=== PATIENT | female | born 1985 | race Hispanic/Latino ===

== ENCOUNTER 2021-05-04 18:11 | Emergency (ER) | payer SELFPAY ==
[~2021-05-04] VITALS: Ht 157.5 cm; Wt 72.6 kg
[2021-05-04] MEDS ORDERED: ACETAMINOPHEN 325 MG TAB PO ONE (18:45)
[2021-05-04] MEDS ORDERED: ACETAMINOPHEN 325 MG TAB ONE (18:47)
[2021-05-04] MEDS ORDERED: CASIRIVIMAB/IMDEVIMAB 10 ML in SODIUM CHLORIDE 0.9% 100 ML IV ONE (19:30)
[2021-05-04 19:38] LABS: CLARITY,URINE CLEAR (CLEAR); COLOR,URINE STRAW (YELLOW); KETONES,URINE NEGATIVE (NEGATIVE); LEUKOCYTE ESTERASE ,URINE NEGATIVE (NEGATIVE); NITRITE,URINE NEGATIVE (NEGATIVE); PROTEIN,URINE DIPSTICK NEGATIVE (NEGATIVE); URINE UROBILINOGEN 0.2 mg/dL (0.2 - 1)
[2021-05-04 19:45] LABS: BACTERIA,URINE RARE /HPF; EPITHELIAL CELLS,URINE RARE /LPF; RBC,URINE 0-5 /HPF (0-5); WBC,URINE (MAN) 0-5 /HPF (0-5)
[2021-05-04] MEDS ORDERED: MOTRIN800 MG PO (20:01)
== END 2021-05-04 20:34 | disposition home or self-care (01) ==
LOC: ER 18:33
DX: U07.1 COVID-19 (principal); R50.9 Fever, unspecified; R53.81 Other malaise; I10 Essential (primary) hypertension; D64.9 Anemia, unspecified
CPT/HCPCS: 81001; 81025; 99284; J7050; U0002